=== PATIENT | male | born 1935 | race Caucasian/White ===

== ENCOUNTER 2018-09-05 20:31 | Inpatient (IN) | payer MEDICARE, OTHER, MEDICAID ==
[2018-09-05] MEDS: SOD CHLORIDE 0.9% 1,000 ML IV (21:20)
[2018-09-05 21:22] LABS: ADD MAN DIFF? NO
[2018-09-05 21:32] LABS: WHITE BLOOD COUNT 14.3 10^3/ul (4.8-10.8)
[2018-09-05 21:32] LABS: BASOPHILS % 0.1 % (0.0-2.0); EOSINOPHILS # 0.2 10^3/ul (0.0-0.5); HEMATOCRIT 36.1 % (42.0-52.0); HEMOGLOBIN 11.9 g/dl (14.0-18.0); LYMPHOCYTES # 1.8 10^3/ul (0.8-2.9); LYMPHOCYTES % 12.5 % (15.0-51.0); MEAN CORPUSCULAR HEMOGLOBIN 27.9 pg (29.0-33.0); MEAN CORPUSCULAR VOLUME 84.7 fl (82.0-101.0); MEAN PLATELET VOLUME 8.6 fl (7.4-10.4); MONOCYTE # 1.3 10^3/ul (0.3-0.9); MONOCYTES % 9.2 % (0.0-11.0); NEUTROPHILS % 76.7 % (39.0-77.0); PLATELET COUNT 496 10^3/UL (140-415); RED BLOOD COUNT 4.26 10^6/ul (4.70-6.10); RED CELL DISTRIBUTION WIDTH 14.6 % (11.5-14.5)
[2018-09-05 21:44] LABS: ALANINE AMINOTRANSFERASE 7 IU/L (13-69); ALBUMIN 3.5 g/dl (3.3-4.9); ALBUMIN/GLOBULIN RATIO 1.06; ALKALINE PHOSPHATASE 126 IU/L (42-121); ANION GAP 14 (5-13); ASPARTATE AMINO TRANSFERASE 30 IU/L (15-46); BILIRUBIN,INDIRECT 0.1 mg/dl (0-1.1); BILIRUBIN,TOTAL 0.1 mg/dl (0.2-1.3); BLOOD UREA NITROGEN 43 mg/dl (7-20); CALCIUM 9.3 mg/dl (8.4-10.2); CARBON DIOXIDE 22 mmol/L (21-31); CHLORIDE 104 mmol/L (97-110); CREATININE 2.32 mg/dl (0.61-1.24); GLUCOSE 114 mg/dl (70-220); LIPASE 171 U/L (23-300); POTASSIUM 4.7 mmol/L (3.5-5.1); SODIUM 140 mmol/L (135-144); TOTAL PROTEIN 6.8 g/dl (6.1-8.1)
[2018-09-05 21:46] LABS: INR 1.09; PROTIME 14.3 Sec (11.9-14.9); PT RATIO 1.1
[2018-09-05 21:47] LABS: PARTIAL THROMBOPLASTIN TIME 39.7 Sec (23.0-35.0)
[2018-09-05 21:55] LABS: TROPONIN-I 0.105 ng/ml (0.000-0.120)
[2018-09-05 22:15] LABS: ADD UMIC YES; UR AMORPHOUS CRYSTAL FEW /HPF (NONE SEEN); UR ASCORBIC ACID 40 mg/dL (NEGATIVE); UR BACTERIA FEW /HPF (NONE SEEN); UR BILIRUBIN (Dip) NEGATIVE (NEGATIVE); UR BLOOD (Dip) 2+ mg/dL (NEGATIVE); UR CLARITY SLIGHTLY CLOUDY (CLEAR); UR COLOR YELLOW (YELLOW); UR GLUCOSE (Dip) NEGATIVE (NEGATIVE); UR KETONES (Dip) NEGATIVE (NEGATIVE); UR LEUKOCYTE ESTERASE (Dip) NEGATIVE Leu/ul (NEGATIVE); UR NITRITE (Dip) NEGATIVE (NEGATIVE); UR RBC 16 /HPF (0-5); UR SPECIFIC GRAVITY (Dip) 1.017 (1.003-1.030); UR TOTAL PROTEIN (Dip) 2+ mg/dl (NEGATIVE); UR UROBILINOGEN (Dip) NEGATIVE (NEGATIVE); UR WBC 4 /HPF (0-5)
[2018-09-05] MEDS: MAGNESIUM HYDROXIDE 30ML CUP PO (23:26)
[2018-09-05] MEDS ORDERED: HYDROCODONE/APAP (5/325) TAB PO ×2 (23:30)
[2018-09-05] MEDS ORDERED: NACL 0.9% 3 ML SYG IV (23:30)
[2018-09-05] MEDS ORDERED: ACETAMINOPHEN 325 MG TAB PO (23:30)
[2018-09-06] MEDS: DEXTROSE 5%-0.45% NACL 1,000 ML IV ×2 (00:30→13:30)
[2018-09-06] MEDS ORDERED: LORAZEPAM 2 MG INJ IV (01:00)
[2018-09-06] MEDS ORDERED: HALOPERIDOL 5 MG INJ IM (01:00)
[2018-09-06] MEDS: LORAZEPAM 4 MG/ML VIAL IV (01:06)
[2018-09-06] MEDS: HYDROmorphONE 1 MG/ML SYG IV ×3 (02:00→20:43)
[2018-09-06] MEDS: HALOPERIDOL 5 MG INJ IM (03:00)
[2018-09-06] MEDS: ALBUTEROL/IPRATROPIUM (NEB) 3 ML AMP HHN ×2 (04:43→22:37)
[2018-09-06 05:08] LABS: ADD MAN DIFF? NO
[2018-09-06 05:09] LABS: WHITE BLOOD COUNT 14.9 10^3/ul (4.8-10.8)
[2018-09-06 05:09] LABS: BASOPHIL # 0.1 10^3/ul (0.0-0.1); BASOPHILS % 0.3 % (0.0-2.0); EOSINOPHILS # 0.3 10^3/ul (0.0-0.5); EOSINOPHILS % 2.1 % (0.0-7.0); HEMATOCRIT 35.6 % (42.0-52.0); HEMOGLOBIN 11.7 g/dl (14.0-18.0); LYMPHOCYTES # 2.3 10^3/ul (0.8-2.9); LYMPHOCYTES % 15.6 % (15.0-51.0); MEAN CORPUSCULAR HGB CONC 32.9 g/dl (32.0-37.0); MEAN CORPUSCULAR VOLUME 85.2 fl (82.0-101.0); MEAN PLATELET VOLUME 8.6 fl (7.4-10.4); MONOCYTE # 1.4 10^3/ul (0.3-0.9); MONOCYTES % 9.5 % (0.0-11.0); NEUTROPHIL # 10.7 10^3/ul (1.6-7.5); NEUTROPHILS % 71.8 % (39.0-77.0); PLATELET COUNT 486 10^3/UL (140-415); RED BLOOD COUNT 4.18 10^6/ul (4.70-6.10); RED CELL DISTRIBUTION WIDTH 14.6 % (11.5-14.5)
[2018-09-06 05:44] LABS: ALBUMIN 3.4 g/dl (3.3-4.9); ALKALINE PHOSPHATASE 120 IU/L (42-121); ANION GAP 12 (5-13); ASPARTATE AMINO TRANSFERASE 28 IU/L (15-46); BILIRUBIN,INDIRECT 0.2 mg/dl (0-1.1); BILIRUBIN,TOTAL 0.2 mg/dl (0.2-1.3); BLOOD UREA NITROGEN 39 mg/dl (7-20); CALCIUM 9.4 mg/dl (8.4-10.2); CARBON DIOXIDE 22 mmol/L (21-31); CHLORIDE 107 mmol/L (97-110); CREATININE 2.23 mg/dl (0.61-1.24); GLUCOSE 101 mg/dl (70-220); MAGNESIUM 2.4 mg/dl (1.7-2.5); PHOSPHORUS 3.8 mg/dl (2.5-4.9); POTASSIUM 4.7 mmol/L (3.5-5.1); SODIUM 141 mmol/L (135-144); TOTAL PROTEIN 6.8 g/dl (6.1-8.1)
[2018-09-06 05:53] LABS: ALANINE AMINOTRANSFERASE < 6 IU/L (13-69)
[2018-09-06 07:48] LABS: SODIUM,URINE RANDOM 70 mmol/L (30-90)
[2018-09-06 07:48] LABS: POTASSIUM,URINE RANDOM 22.7 mmol/L (25-125)
[2018-09-06] MEDS: MAGNESIUM HYDROXIDE 30ML CUP PO (09:00)
[2018-09-06] MEDS: FAMOTIDINE 20 MG INJ IV (18:10)
[2018-09-06] MEDS: ONDANSETRON 4 MG INJ IV (20:40)
[2018-09-07] MEDS: ALBUTEROL/IPRATROPIUM (NEB) 3 ML AMP HHN ×3 (01:45→07:51)
[2018-09-07] MEDS: ACETYLCYSTEINE 20% 4 ML VIAL NEB ×2 (01:46→07:51)
[2018-09-07] MEDS: HYDROmorphONE 1 MG/ML SYG IV ×3 (02:24→14:17)
[2018-09-07] MEDS: DEXTROSE 5%-0.45% NACL 1,000 ML IV (02:29)
[2018-09-07 04:48] LABS: ADD MAN DIFF? NO
[2018-09-07 04:51] LABS: WHITE BLOOD COUNT 24.4 10^3/ul (4.8-10.8)
[2018-09-07 04:51] LABS: ABNORMAL IP MESSAGE 1; BASOPHIL # 0.1 10^3/ul (0.0-0.1); BASOPHILS % 0.2 % (0.0-2.0); HEMATOCRIT 36.6 % (42.0-52.0); HEMOGLOBIN 11.9 g/dl (14.0-18.0); LYMPHOCYTES # 0.6 10^3/ul (0.8-2.9); LYMPHOCYTES % 2.6 % (15.0-51.0); MEAN CORPUSCULAR HEMOGLOBIN 27.8 pg (29.0-33.0); MEAN CORPUSCULAR HGB CONC 32.5 g/dl (32.0-37.0); MEAN CORPUSCULAR VOLUME 85.5 fl (82.0-101.0); MEAN PLATELET VOLUME 8.6 fl (7.4-10.4); MONOCYTE # 1.3 10^3/ul (0.3-0.9); MONOCYTES % 5.3 % (0.0-11.0); NEUTROPHIL # 22.3 10^3/ul (1.6-7.5); NEUTROPHILS % 91.2 % (39.0-77.0); PLATELET COUNT 533 10^3/UL (140-415); POSITIVE DIFF @See below; RED BLOOD COUNT 4.28 10^6/ul (4.70-6.10); RED CELL DISTRIBUTION WIDTH 14.8 % (11.5-14.5)
[2018-09-07 05:13] LABS: ANION GAP 16 (5-13); BLOOD UREA NITROGEN 36 mg/dl (7-20); CALCIUM 9.9 mg/dl (8.4-10.2); CARBON DIOXIDE 19 mmol/L (21-31); CHLORIDE 109 mmol/L (97-110); CREATININE 2.11 mg/dl (0.61-1.24); GLUCOSE 172 mg/dl (70-220); MAGNESIUM 2.3 mg/dl (1.7-2.5); POTASSIUM 4.9 mmol/L (3.5-5.1); SODIUM 144 mmol/L (135-144)
[2018-09-07] MEDS ORDERED: GUAIFENESIN 20 MG/ML 5ML CUP ×2 (08:17→08:23)
[2018-09-07] MEDS ORDERED: GUAIFENESIN/DM 5ML CUP (08:18)
[2018-09-07] MEDS: FAMOTIDINE 20 MG INJ IV (08:26)
[2018-09-07] MEDS: MAGNESIUM HYDROXIDE 30ML CUP PO (08:26)
[2018-09-07] MEDS ORDERED: GUAIFENESIN 20 MG/ML 5ML CUP PO (08:30)
[2018-09-07] MEDS ORDERED: LORAZEPAM 4 MG/ML VIAL IV ×2 (13:00→15:00)
[2018-09-07] MEDS ORDERED: ACETAMINOPHEN 650 MG SUPP PR (13:00)
[2018-09-07] MEDS ORDERED: BISACODYL 10 MG SUPP PR (13:00)
[2018-09-07] MEDS ORDERED: HYDROmorphONE 1 MG/ML SYG IV ×2 (13:00→14:00)
[2018-09-07] MEDS ORDERED: HYDROmorphONE 0.2 MG/ML PCA IV (13:00)
[2018-09-07] MEDS: HYDROmorphONE 50 MG in DEXTROSE 5% 45 ML IV ×2 (14:17→15:11)
[2018-09-07] MEDS ORDERED: ONDANSETRON 4 MG INJ IV (14:30)
[2018-09-07] MEDS: ATROPINE 1% 5 ML OPH SL ×2 (15:41→19:47)
[2018-09-08] MEDS: ATROPINE 1% 5 ML OPH SL ×6 (01:34→16:30)
[2018-09-08] MEDS: SCOPOLAMINE 1.5 MG PATCH TRANSDERM (08:01)
[2018-09-08] MEDS: HYDROmorphONE 50 MG in DEXTROSE 5% 45 ML IV (12:37)
[2018-09-08] MEDS: GLYCOPYRROLATE 0.4 MG INJ IV (13:57)
== END 2018-09-08 18:59 | disposition expired | DRG 374 ==
LOC: E/R 20:31 → MS1 22:44
DX: C18.9 Malignant neoplasm of colon, unspecified (principal); R65.11 Systemic inflammatory response syndrome (SIRS) of non-infectious origin with acute organ dysfunction; C78.6 Secondary malignant neoplasm of retroperitoneum and peritoneum; C78.7 Secondary malignant neoplasm of liver and intrahepatic bile duct; C78.00 Secondary malignant neoplasm of unspecified lung; R18.0 Malignant ascites; N17.9 Acute kidney failure, unspecified; N13.1 Hydronephrosis with ureteral stricture, not elsewhere classified; N40.0 Benign prostatic hyperplasia without lower urinary tract symptoms; E03.9 Hypothyroidism, unspecified; I48.91 Unspecified atrial fibrillation; Z90.49 Acquired absence of other specified parts of digestive tract; Z79.01 Long term (current) use of anticoagulants; Z66 Do not resuscitate; E83.9 Disorder of mineral metabolism, unspecified; Z51.5 Encounter for palliative care
CPT/HCPCS: 36415; 74176; 76775; 80048; 80053; 81001; 82436; 83690; 83735; 84100; 84133; 84300; 84484; 85025; 85610; 85730; 93005; 94640; 94664; 96360; 99285-25